=== PATIENT | female | born 1975 | race Caucasian/White ===

== ENCOUNTER 2018-08-24 07:17 | Day surgery (SDC) | payer OTHER ==
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
[2018-08-24] MEDS ORDERED: ceFAZolin 2 GM/DEXTROSE 100 ML IV ONE (07:31)
[2018-08-24] MEDS ORDERED: LR 1,000 ML IV ONE (07:31)
--- NOTE | 2018-08-24 08:28 | PDANEPAE ---
ANE Past Medical History - Cardiovascular History Hx Hypertension: No Hx Arrhythmias: No Hx Chest Pain: No Hx Coronary Artery / Peripheral Vascular Disease: No Hx CHF / Valvular Disease: No Hx Palpitations: No Cardiovascular History Comment: HTN during - Pulmonary History Hx COPD: No Hx Asthma/Reactive Airway Disease: No Hx Recent Upper Respiratory Infection: No Hx Oxygen in Use at Home: No Hx Sleep Apnea: No Sleep Apnea Screening Result - Last Documented: Negative - Neurologic History Hx Cerebrovascular Accident: No Hx Seizures: No Hx Dementia: No - Endocrine History Hx Diabetes: No - Renal History Hx Renal Disorders: No - Liver History Hx Hepatic Disorders: No - Neurological & Psychiatric Hx Hx Neurological and Psychiatric Disorders: No - Cancer History Hx Cancer: Yes Cancer History Comment: breast - Congenital Disorder History Hx Congenital Disorders: No - GI History Hx Gastrointestinal Disorders: Yes Gastrointestinal History Comment: INTERMITTENT IBS - Other Health History Other Health History: heavy period bleeding - Chronic Pain History Chronic Pain: No - Surgical History Prior Surgeries: mastopexy right sore on right. 2 c sections. lumpectomy 2013 w/biopsy ANE Review of Systems Review of Systems: - Exercise capacity METS (RN): 4 METS ANE Patient History - Allergies Allergies/Adverse Reactions: No Known Allergies Allergy (Unverified 08/24/18 07:46) - Home Medications Home Medications: Acetaminophen [Tylenol 325mg (*)] 325 mg PO DAILY PRN 07/28/18 [Last Taken 1 Month Ago ~07/24/18] Albuterol [Proventil Inhaler HFA (*)] 1 - 2 puffs IH Q4H PRN 07/28/18 [Last Taken 1 Month Ago ~07/24/18] Cholecalciferol Vit D3 [Vitamin D3 (*)] 1,000 units PO DAILY 07/28/18 [Last Taken 08/20/18] Glucosamine Sulfate [Glucosamine Sulfate 500 MG (*)] 500 mg PO DAILY 07/28/18 [ Last Taken 08/20/18] Herbals/Supplements -Info Only 1 ea PO DAILY 07/28/18 [Last Taken 08/20/18] Tamoxifen Citrate 20 mg PO HS 07/28/18 [Last Taken 08/23/18] - NPO status NPO Since - Liquids (Date): 08/24/18 NPO Since - Liquids (Time): 04:00 NPO Since - Solids (Date): 08/23/18 NPO Since - Solids (Time): 22:30 - Smoking Hx Smoking Status: Never smoked - Family Anes Hx Family Hx Anesthesia Complications: none ANE Labs/Vital Signs - Vital Signs Blood Pressure: 134/86 Heart Rate: 68 Respiratory Rate: 18 O2 Sat (%): 94 Height: 172.72 cm Weight: 83.461 kg ANE Physical Exam - Airway Neck exam: FROM Mallampati Score: Class 2 Mouth exam: normal dental/mouth exam - Pulmonary Pulmonary: no respiratory distress - Cardiovascular Cardiovascular: regular rate and rhythym - ASA Status ASA Status: II ANE Anesthesia Plan Total IV Anesthesia: Yes
[2018-08-24] MEDS ORDERED: PROPOFOL/EMULSION 500 MG/50 ML BOTTLE IV ONE (08:31)
[2018-08-24] MEDS ORDERED: fentaNYL 100 MCG/2 ML INJ ONE (08:31)
[2018-08-24] MEDS ORDERED: KETOROLAC 30 MG/1 ML SDV ONE (08:33)
[2018-08-24] MEDS ORDERED: LIDOCAINE 2% 100 MG/5 ML SYR ONE (08:33)
[2018-08-24] MEDS ORDERED: NALOXONE HCL 0.4 MG/ML INJ IVP PRN (08:38)
[2018-08-24] MEDS ORDERED: ONDANSETRON 4 MG/2 ML VIAL IVP PRN (08:38)
[2018-08-24] MEDS ORDERED: fentaNYL 100 MCG/2 ML INJ IVP PRN (08:38)
[2018-08-24] MEDS ORDERED: ALBUTEROL 3 ML DEYVIAL IH PRN (08:38)
[2018-08-24] MEDS ORDERED: MEPERIDINE 25 MG/0.5 ML AMP IVP PRN (08:38)
--- NOTE | 2018-08-24 08:43 | PDHPUP ---
History & Physical Update H&P update statement: This history and physical update is based on an assessment of the patient which was completed after admission or registration (within 24 hours), but prior to the surgery/procedure. H&P update: no change in patient's condition since H&P completed
[2018-08-24] MEDS ORDERED: PROPOFOL 200 MG/20 ML VIAL ONE (09:17)
--- NOTE | 2018-08-24 09:36 | POSTANESTH ---
Post Anesthetic Evaluation Cardiovascular Status: Similar to Pre-Op Cond Respiratory Status: Similar to Pre-op Cond. Level of Consciousness/Mental Status: Mildly Sleepy, Arousable Pain Control: Adequate, Prn Tx Ordered Nausea/Vomiting Control: Adequate, Prn Tx Ordered Complications Possibly Related to Anesthesia: None Noted
--- NOTE | 2018-08-24 09:39 | POSTOPPROG ---
Post Op Note Date of Operation: 08/24/18 Surgeon: Berkley Vick Anesthesiologist: Real Villafana MD Anesthesia: IV Sedation (general) Pre-op Diagnosis: Menorrhagia, possible RPOCs Post-op Diagnosis: same, scarred endometrium Indication: h/o Br cancer, C/S 07/15, bld x 10 wks, BF x 6 mo then Tamoxifen, menorrhag Procedure: hysteroscopy with morcellation of lining Findings: scarred endometrium with firm bands of tissue, multiple calcified areas Inf/Abcess present in the surg proc area at time of surgery?: No Depth: Organ Space EBL: Minimal Complications: no complications, thin endometrium except scarred areas. Deficit 410cc Specimen(s): endometrial currettings from morcellator
[2018-08-24 11:33] VITALS: BP 122/90
== END 2018-08-24 11:30 | disposition home or self-care (01) ==
LOC: FSGY 07:17
PROVIDERS: ATTEND Obstetrics & Gynecology
PROC: 0U5B8ZZ Destruction of Endometrium, Via Natural or Artificial Opening Endoscopic (ICD-10-PCS; principal; 2018-08-24 08:45)
DX: N84.0 Polyp of corpus uteri (principal); N92.0 Excessive and frequent menstruation with regular cycle; Z85.3 Personal history of malignant neoplasm of breast; Z79.890 Hormone replacement therapy; Z80.3 Family history of malignant neoplasm of breast
CPT/HCPCS: 58563; C1782; J0690; J1885; J2001; J2704; J3010